=== PATIENT | female | born 1950 | race Caucasian/White ===

== ENCOUNTER 2018-02-24 05:52 | Emergency (ER) | payer BC, MEDICARE, OTHER ==
--- NOTE | 2018-02-24 07:01 | PCM.PREANE ---
Preanesthetic Assessment - Anesthesia/Transfusion/Family Hx Anesthesia History: Prior Anesthesia Without Reaction Family History of Anesthesia Reaction: No Transfusion History: No Prior Transfusion(s) Intubation History: Unknown - Review of Systems General: No Symptoms Pulmonary: No Symptoms Cardiovascular: No Symptoms Gastrointestinal: No Symptoms Neurological: Numbness (left hand) Other: Reports: None, Neck Pain - Physical Assessment NPO Status Date: 02/23/18 NPO Status Time: 19:00 Pulse: 96 O2 Sat by Pulse Oximetry: 97 Respiratory Rate: 16 Blood Pressure: 127/72 Temperature: 36.4 C Vital Signs: Last Vital Signs Temp 36.4 C 02/24/18 05:56 Pulse 96 02/24/18 05:56 Resp 16 02/24/18 05:56 BP 123/72 02/24/18 05:56 Pulse Ox Height: 1.6 m Weight: 61.235 kg ASA Class: 2E Mental Status: Alert & Oriented x3 Airway Class: Mallampati = 2 Dentition: Reports: Normal Dentition, Caries Thyro-Mental Finger Breadths: 3 Mouth Opening Finger Breadths: 3 ROM/Head Extension: Full Lungs: Clear to Auscultation, Normal Respiratory Effort Cardiovascular: Regular Rate, Regular Rhythm, No Murmurs - Allergies Allergies/Adverse Reactions: Allergies Allergy/AdvReac Type Severity Reaction Status Date / Time mupirocin Allergy Cannot Verified 02/24/18 06:01 Remember - Anesthesia Plan Pre-Op Medication Ordered: None - Acknowledgements Anesthesia Type Planned: MAC Pt an Appropriate Candidate for the Planned Anesthesia: Yes Alternatives and Risks of Anesthesia Discussed w Pt/Guardian: Yes Pt/Guardian Understands and Agrees with Anesthesia Plan: Yes PreAnesthesia Questionnaire HEENT History: Reports: Impaired Vision 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: , 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 - Past Surgical History HEENT Surgical History: Reports: Tonsillectomy Musculoskeletal Surgical History: Reports: Other (See Below) Other Musculoskeletal Surgeries/Procedures:: Neck surgery - SUBSTANCE USE Smoking Status *Q: Former Smoker Days Per Week of Alcohol Use: 1 Number of Drinks Per Day: 1 Total Drinks Per Week: 1 Recreational Drug Use History: No - HOME MEDS Home Medications: Home Meds Alendronate Sodium [Fosamax] 70 mg PO ASDIRECTED 02/24/18 [History] Calcium Carbonate [Calcium] 1 tab PO DAILY 02/24/18 [History] Fish Oil/[place]-3 Fatty Acids [Fish Oil] 1,200 mg PO DAILY 02/24/18 [History] Multivitamin [Multivitamins] 1 tab PO DAILY 02/24/18 [History] atorvaSTATin Calcium [Lipitor] 20 mg PO DAILY 02/24/18 [History]
[2018-02-24] MEDS ORDERED: Propofol 200 MG/20 ML SDV ONE (07:03)
[2018-02-24] MEDS ORDERED: Lidocaine 1% 4 ML ONE (07:03)
[2018-02-24] MEDS ORDERED: fentaNYL 100 MCG/2 ML SDV ONE (07:04)
--- NOTE | 2018-02-24 07:27 | PCM48HPAN ---
Post Anesthesia Note - EVALUATION WITHIN 48HRS OF ANESTHETIC Vital Signs in Normal Range: Yes Patient Participated in Evaluation: Yes Respiratory Function Stable: Yes Airway Patent: Yes Cardiovascular Function Stable: Yes Hydration Status Stable: Yes Pain Control Satisfactory: Yes Nausea and Vomiting Control Satisfactory: Yes Mental Status Recovered: Yes Pulse Rate: 96 SaO2: 99 Resp Rate: 16 Temperature: 36.4 C Blood Pressure: 127/72 Pulse Rate: 54
--- NOTE | 2018-02-24 07:52 | EDM.PDOC ---
ED HPI GENERAL MEDICAL PROBLEM - General Chief Complaint: Upper Extremity Injury/Pain Stated Complaint: [facility] Time Seen by Provider: 02/24/18 06:30 Source of Information: Reports: Patient - History of Present Illness Onset: Today Left Shoulder Pain Score (Numeric/FACES): 10 Right Ankle Pain Score (Numeric/FACES): 5 - Related Data Allergies Allergy/AdvReac Type Severity Reaction Status Date / Time mupirocin Allergy Cannot Verified 02/24/18 06:01 Remember Home Meds: Home Meds Alendronate Sodium [Fosamax] 70 mg PO ASDIRECTED 02/24/18 [History] Calcium Carbonate [Calcium] 1 tab PO DAILY 02/24/18 [History] Fish Oil/[place] [address]-3 Fatty Acids [Fish Oil] 1,200 mg PO DAILY 02/24/18 [History] Multivitamin [Multivitamins] 1 tab PO DAILY 02/24/18 [History] atorvaSTATin Calcium [Lipitor] 20 mg PO DAILY 02/24/18 [History] Past Medical History HEENT History: Reports: Impaired Vision 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: , 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 - Past Surgical History HEENT Surgical History: Reports: Tonsillectomy Musculoskeletal Surgical History: Reports: Other (See Below) Other Musculoskeletal Surgeries/Procedures:: Neck surgery Social & Family History - Family History Family Medical History: Noncontributory - Tobacco Use Smoking Status *Q: Former Smoker Used Tobacco, but Quit: Yes Month/Year Tobacco Last Used: 07/2009 - Caffeine Use Caffeine Use: Reports: Coffee - Alcohol Use Days Per Week of Alcohol Use: 1 Number of Drinks Per Day: 1 Total Drinks Per Week: 1 - Recreational Drug Use Recreational Drug Use: No Review of Systems - Review of Systems Review Of Systems: See Below ED EXAM, GENERAL - Physical Exam Exam: See Below Course - Vital Signs Last Recorded V/S: Last Vital Signs Temp 36.4 C 02/24/18 07:27 Pulse 96 02/24/18 07:27 Resp 16 02/24/18 07:27 BP 127/72 02/24/18 07:27 Pulse Ox 99 02/24/18 07:27 - Orders/Labs/Meds Orders: Active Orders 24 hr Category Date Time Status Ankle Min 3V Rt [CR] Stat Exams 02/24/18 05:58 Taken Shoulder 1V Lt [CR] Stat Exams 02/24/18 07:26 Taken Shoulder Comp Lt [CR] Stat Exams 02/24/18 05:57 Taken Meds: Medications Discontinued Medications Generic Name Dose Route Start Last Admin Trade Name Kirsty PRN Reason Stop Dose Admin Fentanyl Confirm 02/24/18 07:04 Sublimaze Administered 02/24/18 07:05 Dose 100 mcg .ROUTE .STK-MED ONE Lidocaine HCl Confirm 02/24/18 07:03 Xylocaine-Mpf 1% Administered 02/24/18 07:04 Dose 4 mls @ as directed .ROUTE .STK-MED ONE Propofol Confirm 02/24/18 07:03 Diprivan 20 Ml Administered 02/24/18 07:04 Dose 200 mg .ROUTE .STK-MED ONE Departure - Departure Time of Disposition: 07:48 Disposition: Home, Self-Care 01 Condition: Good Clinical Impression: Dislocation, shoulder, anterior Qualifiers: Encounter type: initial encounter Laterality: right Qualified Code(s): S43.014A - Anterior dislocation of right humerus, initial encounter Right fibular fracture Qualifiers: Encounter type: initial encounter Fibula location: lateral malleolus Fracture type: closed Fracture alignment: nondisplaced Qualified Code(s): S82.64XA - Nondisplaced fracture of lateral malleolus of right fibula, initial encounter for closed fracture - Discharge Information *PRESCRIPTION DRUG MONITORING PROGRAM REVIEWED*: Not Applicable *COPY OF PRESCRIPTION DRUG MONITORING REPORT IN PATIENT KAILASH: Not Applicable Referrals: aSndra Reyes WOOD CASKET ASSEMBLER [Primary Care Provider] - Additional Instructions: Followup with Dr Pak in 1 week. Hydrocodone or tylenol as needed for pain. May remove shoulder sling to shower. - My Orders Last 24 Hours: My Active Orders 02/24/18 05:57 Shoulder Comp Lt [CR] Stat 02/24/18 05:58 Ankle Min 3V Rt [CR] Stat 02/24/18 07:26 Shoulder 1V Lt [CR] Stat - Assessment/Plan Last 24 Hours: My Active Orders 02/24/18 05:57 Shoulder Comp Lt [CR] Stat 02/24/18 05:58 Ankle Min 3V Rt [CR] Stat 02/24/18 07:26 Shoulder 1V Lt [CR] Stat
--- NOTE | 2018-02-24 08:37 | CR ---
Right ankle: Four views of the right ankle were obtained. Comparison: No previous study. Slightly displaced distal fibular fracture is noted. Lucencies are seen within the talar dome likely degenerative in etiology. Soft tissue swelling is seen. Small bony density is seen off the posterior malleolus possibly due to old avulsion fracture. No additional abnormality is seen. Impression: 1. Slightly displaced distal fibular fracture. 2. Other findings as noted above. Diagnostic code #3
--- NOTE | 2018-02-24 15:20 | ER ---
REASON FOR EMERGENCY ROOM VISIT: Left shoulder and right ankle injury. HISTORY OF PRESENT ILLNESS: This 67-year-old woman was brought in by ambulance after having sustained a fall in an accident on a treadmill. Somehow, she twisted her ankle while the treadmill was running, and she fell landing on her left shoulder. This caused marked pain in her left shoulder and some deformity that was grossly evident to the ambulance personnel. She did not lose any consciousness nor did she strike any other areas of her body in the accident. On arrival in the emergency department, she was complaining of severe pain in her left shoulder and to a much lesser extent pain involving her right ankle. PAST MEDICAL HISTORY: See electronic medical record, reviewed. CURRENT MEDICATIONS: Reviewed, see EMR. ALLERGIES: To mupirocin. REVIEW OF SYSTEMS: All pertinent positives and negatives as listed in the HPI. PHYSICAL EXAMINATION: VITAL SIGNS: See EMR. GENERAL: She is alert and in considerable discomfort. Her left arm is held close to her chest and flexed at the elbow. She has obvious deformity at the level of the shoulder consistent with a fracture or dislocation. HEENT: Head is atraumatic. NECK: Supple, nontender. CHEST: Clear to auscultation. No tenderness to palpation. No external evidence of bruising. CARDIAC: Regular rate, without murmur. ABDOMEN: Soft. EXTREMITIES: Her left shoulder is deformed, and she is holding it in the above- described position. She does have a palpable radial pulse. She is complaining of some tingling over the median nerve distribution. Capillary refill is normal, and sensation is normal to cool touch involving all 5 fingers. Finger abduction and adduction and opposition of thumb and little finger are preserved as well as extension distally. Right ankle, she has tenderness just above the lateral malleolus on the right side with minimal swelling. No bony crepitance or bony deformity can be palpated. Dorsalis pedis pulse is palpated. Knee range of motion and hip range of motion on the right side is normal. DATA: X-rays involving only 1 Y-view and an AP view could be obtained of her shoulder because of pain, and it showed what appeared to be an anterior dislocation with a chip off the greater trochanter. This was reviewed with Dr. Pak who agreed with this assessment. The right ankle shows a well-aligned distal fibular fracture. FURTHER EMERGENCY ROOM COURSE: I discussed the case with Dr. Pak who happened to be in-house. Anesthesia was present to assist with providing sedation which they accomplished using fentanyl and propofol. After informed consent, the left shoulder dislocation was reduced with minimum of traction and it popped right into place. Once she had awakened from her sedation, her sensation in her fingers was all normal as well as her motor function. She was able to gingerly reach across and touch her contralateral shoulder with her outstretched hand which is a good sign. DISCHARGE DIAGNOSES: 1. Left shoulder dislocation with chip fracture of greater trochanter of the humerus, reduced. 2. Right fibular fracture. PLAN: Her left arm will be kept in a sling. We applied a CAM Walker to her right leg, and she will be assisted in her ambulation with the use of a platform walker. A followup in 1 week's time was recommended by Dr. Pak, and this was related to the patient and her who was in attendance. She was given a prescription of hydrocodone 5/325 dispensed #21 q.4 hours p.r.n. pain. She is going to alternate this with Tylenol as needed. I advised them too that I would prefer she takes Tylenol over ibuprofen. If there are any questions or concerns, she has any unusual numbing, or any other concerning symptoms, she should get in touch with us or give us a call. All questions were answered. They understand and agree with this plan. JOY /[id number]
--- NOTE | 2018-02-27 09:15 | CR ---
Left shoulder: Three views of the left shoulder were obtained. Comparison: No previous study. Dislocation is seen within the glenohumeral joint in an anterior direction. Mildly displaced fracture is seen within the greater tuberosity. No additional abnormality is seen. Impression: 1. Fracture and dislocation as noted above. Diagnostic code #3
--- NOTE | 2018-02-27 09:15 | CR ---
Left shoulder: Single AP view of the left shoulder was obtained. Comparison: Prior left shoulder radiograph performed on the same day (6:04 AM). Previous dislocation has been reduced. Displaced greater tuberosity fracture poorly seen due to humeral rotation but appears better aligned. No additional abnormality is seen. Impression: 1. Reduction of previous dislocation. Previously noted greater tuberosity fracture is poorly seen on this study. Diagnostic code #2
== END 2018-02-24 08:23 | disposition home or self-care (01) ==
LOC: JD.ED 05:52
DX: S43.015A Anterior dislocation of left humerus, initial encounter (principal); S82.64XA Nondisplaced fracture of lateral malleolus of right fibula, initial encounter for closed fracture; S72.112A Displaced fracture of greater trochanter of left femur, initial encounter for closed fracture; Z87.891 Personal history of nicotine dependence; Z88.1 Allergy status to other antibiotic agents; X50.1XXA Overexertion from prolonged static or awkward postures, initial encounter; Y93.A1 Activity, exercise machines primarily for cardiorespiratory conditioning
CPT/HCPCS: 23655; 73020; 73030; 73610; 99285; J2704; J3010; 01620; 99284; J2001

== ENCOUNTER → 2020-11-15 | Day surgery (SDC) | payer MEDICARE, OTHER ==
[2020-11-15] MEDS: Brimonidine 0.2% Ophth Soln 5 ML Bottle EYEBOTH SCH ×2 (07:15→08:19)
[2020-11-15] MEDS: Phenylephrine 2.5% Ophth Soln 2 ML Bot EYEBOTH SCH ×2 (07:20→07:30)
[2020-11-15] MEDS: Tropicamide 1% Ophth Soln 15 ML Bottle EYEBOTH SCH ×2 (07:25→07:35)
== END ==
LOC: JD.SDS 07:07
PROVIDERS: ATTEND Ophthalmology
DX: H26.493 Other secondary cataract, bilateral (principal); H43.813 Vitreous degeneration, bilateral; H16.223 Keratoconjunctivitis sicca, not specified as Sjogren's, bilateral; E78.00 Pure hypercholesterolemia, unspecified; I10 Essential (primary) hypertension; Z98.890 Other specified postprocedural states; Z79.899 Other long term (current) drug therapy; Z88.8 Allergy status to other drugs, medicaments and biological substances; Z96.1 Presence of intraocular lens

== ENCOUNTER 2023-06-25 15:32 | Emergency (ER) | payer MEDICARE, OTHER ==
[2023-06-25] MEDS ORDERED: Aspirin 81 MG Tab.Chew PO ONE (15:59)
[2023-06-25] MEDS ORDERED: Sodium Chloride 0.9% 10 ML Syringe FLUSH PRN (15:59)
[2023-06-25 16:13] LABS: BASOPHILS ABSOLUTE AUTO 0.1 K/mm3 (0.0-0.2); BASOPHILS PERCENT AUTO 0.5 % (0.0-1.0); EOSINOPHILS ABSOLUTE AUTO 0.3 K/mm3 (0.0-0.4); EOSINOPHILS PERCENT AUTO 2.4 % (0.0-6.0); HEMATOCRIT 40.7 % (37.0-47.0); HEMOGLOBIN 13.7 gm/dl (12.0-16.0); IMMATURE GRAN ABSOLUTE AUTO 0.03 K/mm3 (0.00-0.05); IMMATURE GRAN PERCENT AUTO 0.3 % (0.0-0.4); LYMPHOCYTES ABSOLUTE AUTO 3.6 K/mm3 (1.0-4.8); LYMPHOCYTES PERCENT AUTO 34.8 % (24.0-44.0); MEAN CORPUSCULAR HEMOGLOBIN 30.6 pg (28.0-32.0); MEAN CORPUSCULAR HGB CONC 33.7 g/dl (32.0-36.0); MEAN CORPUSCULAR VOLUME 91.1 fl (83.0-99.0); MEAN PLATELET VOLUME 10.5 fl (9.4-12.3); MONOCYTES PERCENT AUTO 9.3 % (0.0-8.0); NEUTROPHILS ABSOLUTE AUTO 5.4 K/mm3 (1.8-7.7); NEUTROPHILS PERCENT AUTO 52.7 % (41.0-71.0); PLATELET COUNT,PLT 203 K/mm3 (150-400); RED BLOOD CELL COUNT 4.47 M/mm3 (4.10-5.30); WHITE BLOOD CELL COUNT,WBC 10.25 K/mm3 (3.9-11.3)
[2023-06-25 16:20] LABS: INR 0.98; PROTHROMBIN TIME 10.5 SECONDS (9.7-12.0)
[2023-06-25 16:28] LABS: D-DIMER QUANTITATIVE 0.52 mg/L (0.19-0.50)
[2023-06-25 16:30] LABS: ALBUMIN 3.5 g/dl (3.4-5.0); ANION GAP 14.6 (5-15); BILIRUBIN TOTAL 0.4 mg/dL (0.2-1.0); BUN/CREATININE RATIO 15.6 (14-18); CALCIUM 9.5 mg/dL (8.5-10.1); CREATININE 0.9 mg/dL (0.55-1.02); EST CRCL DRUG DOSING (CG) 44.69 mL/min; MAGNESIUM 1.5 mg/dL (1.8-2.4); POTASSIUM,K 3.6 mEq/L (3.5-5.1); PROTEIN TOTAL,TP 7.2 g/dl (6.4-8.2)
== END 2023-06-25 18:20 | disposition home or self-care (01) ==
LOC: JD.ED 15:32
DX: R07.89 Other chest pain (principal); M25.512 Pain in left shoulder; Z79.899 Other long term (current) drug therapy
CPT/HCPCS: 36415; 71045; 71045-26; 80053; 83735; 83880; 84484; 85025; 85379; 85610; 93005; 93010; 99284; 99285; A9270-GY